=== PATIENT | female | born 1970 | race Caucasian/White ===

== ENCOUNTER 2018-02-28 21:20 | Emergency (ER) | payer OTHER ==
[~2018-02-28] VITALS: Ht 165.1 cm; Wt 77.1 kg
[2018-02-28] MEDS ORDERED: PROZAC10 MG PO (21:26)
[2018-02-28 21:41] LABS: ABSOLUTE EOSINOPHILS 0.5 thou/uL (0.0-0.7); ABSOLUTE LYMPHOCYTES 2.8 thou/uL (0.8-5.3); ABSOLUTE MONOCYTES 0.6 thou/uL (0.0-1.2); ABSOLUTE NEUTROPHILS 4.9 thou/uL (1.6-8.1); BASOPHILS 0.5 %; EOSINOPHILS 5.3 %; HEMOGLOBIN 12.2 gm/dL (12.0-15.0); LYMPHOCYTES 31.7 %; MCHC 34.9 g/dL (28.0-37.0); MCV 91.5 fL (80.0-100.0); MONOCYTES 6.5 %; MPV 7.5 fl. (7.2-11.1); NUCLEATED RBCS 0 /100WBC; PLATELET COUNT* 289 thou/uL (150-400); RBC 3.83 mil/uL (4.20-5.00); RDW-CV 12.7 % (10.5-14.5); WBC 8.8 thou/uL (4.0-11.0)
[2018-02-28 21:51] LABS: ANION GAP 9 mmol/L (7-16); BUN 16 mg/dL (7-18); CHLORIDE 103 mmol/L (98-107); CO2 26 mmol/L (21-32); CREATININE 0.7 mg/dL (0.6-1.3); GLUCOSE 98 mg/dL (70-99); POTASSIUM 3.9 mmol/L (3.5-5.1); PROTIME 10.2 Seconds (9.20-11.50); SODIUM 138 mmol/L (136-145)
[2018-02-28 22:01] LABS: ALBUMIN 3.7 g/dL (3.4-5.0); ALKALINE PHOSPHATASE 51 U/L (46-116); LIPASE 137 U/L (73-393); NT-PRO BRAIN NAT PEPTIDE 15 pg/mL (<300); SGOT 18 U/L (15-37); SGPT 21 U/L (30-65); TOTAL BILIRUBIN 0.2 mg/dL (<0.1-1.0); TOTAL PROTEIN 7.4 g/dL (6.4-8.2); TROPONIN-I LEVEL <0.06 ng/mL (<0.06)
[2018-02-28] MEDS ORDERED: XANAX 1 MG TABLE1 MG PO (22:59)
[2018-02-28 23:27] VITALS: BP 107/67
--- NOTE | 2018-03-02 15:49 | EKG ---
[place] [address] ELECTROCARDIOGRAM REPORT Name: JARROD BEY Room: 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
== END 2018-02-28 23:27 | disposition home or self-care (01) ==
LOC: M.ERS 21:20
PROVIDERS: Emergency Medicine
DX: R07.89 Other chest pain (principal); F32.9 Major depressive disorder, single episode, unspecified; E78.5 Hyperlipidemia, unspecified

== ENCOUNTER 2020-02-06 22:54 | Emergency (ER) | payer OTHER ==
[~2020-02-06] VITALS: Ht 165.1 cm; Wt 70.3 kg
--- NOTE | ~2020-02-06 | CON ---
[address] [address] CONSULTATION Name: МАРИЯ JARROD ESPINOZA Room: [facility]#: [id number] Admission: 02/06/20 Attend Phys: Discharge: 02/07/20 Date of : 68 Report #: [id number] THIS REPORT FOR: //name// cc: ANNA - No family physician/PCP [facility] - No family physician/PCP ~ THIS REPORT FOR: //name// CC: [facility] physician/PCP Feli Sparks DATE OF SERVICE: 02/06/2020 HISTORY OF PRESENT ILLNESS: This is a pleasant female with a past medical history significant for food bolus impactions and esophageal dilation, was presenting with food bolus impaction. The patient reports she had dinner at 8:30 p.m. Since then, has had something stuck in her chest. The patient is unable to swallow liquids. In the Emergency Department, the patient was given a combination of glucagon and Ativan and this failed to relieve her symptoms. PAST MEDICAL HISTORY: Nonsignificant. PAST SURGICAL HISTORY: ACL repair. SOCIAL HISTORY: No history of smoking, alcohol or recreational drug use. FAMILY HISTORY: No family history of colon cancer or [place]-related neoplasia. REVIEW OF SYSTEMS: Comprehensive 10-point review of systems is negative except what is mentioned in the HPI. PHYSICAL EXAMINATION: GENERAL: The patient is alert, awake, oriented x 3. HEENT: Pupils are equal, round, reactive to light and accommodation. Mucous membranes are moist. There is no congestion. LUNGS: Clear to auscultation bilaterally. CARDIOVASCULAR: Rate and rhythm regular, S1, S2 present. ABDOMEN: Soft. There is no distention, guarding or rigidity. EXTREMITIES: Warm and well perfused. There is no edema. ASSESSMENT AND PLAN: Pleasant 49-year-old female who is presenting with food [address] [address] CONSULTATION Name: JARROD BEY Room: [facility]#: [id number] Admission: 02/06/20 Attend Phys: Discharge: 02/07/20 Date of : 68 Report #: [id number] bolus impaction. We will proceed with EGD and make further recommendations based on results of EGD. By: 0123 Perez Sparks MD /saul
--- NOTE | ~2020-02-06 | PROC ---
[address] [address] PROCEDURE REPORT Name: JARROD BEY [id number] Admission: 02/06/20 Attend Phys: Discharge: 02/07/20 Date of : 68 Report #: [id number] THIS REPORT FOR: //name// cc: FAM - No family physician/PCP FAM - No family physician/PCP ~ THIS REPORT FOR: //name// For GI report, please see the Provation report in Perceptive 7 content. By: [id number] Records Staff [facility] /JARRETT
[~2020-02-06 22:54] MED LIST: PROZAC10 MG PO; XANAX 1 MG TABLE1 MG PO
[2020-02-06] MEDS ORDERED: ZYRTEC10 M5 PO (23:01)
[2020-02-07 00:30] VITALS: BP 120/73
--- NOTE | 2020-02-10 10:08 | PATH ---
[facility] [address] [place] [address] PATHOLOGY RPT PROCEDURE Name: JARROD WELCH Room: [facility] Trey#: [id number] Admission: 02/06/20 Date of : 68 Discharge: 02/07/20 Report #: [id number] Path Case #: [id number] [facility] Accession Number: [id number] . 01 Material submitted: . esophagus - ESOPHAGEAL BIOPSY RULE OUT EOSINOPHILIC ESOPHAGITIS . 01 Clinical history: . Hx of Borja's Dx/ food bolus, R/O eosinophilic esophagitis . 02 Diagnosis: Esophageal biopsy: - Typical of eosinophilic (allergic) esophagitis. See comment. . (VINNY:kameron; 02/09/2020) S 02/09/2020 1025 Local . 02 Comment: The biopsies reveal benign esophageal mucosa with an abundance of eosinophils averaging at least 20 per high power field and associated with prominent basilar cell hyperplasia. (VINNY:kameron; 02/09/2020) . 02 Electronically signed: . Heraclio Dupont MD, Pathologist NPI- [id number] . 01 Gross description: . The specimen is received in formalin, labeled "Jarrod Welch, esophageal biopsy" and consists of multiple fragments of freitas tissue measuring 0.7 x 0.3 x 0.2 cm in aggregate which are entirely submitted in A1. (JMF; 02/08/2020) JFQ/JFQ 02/08/2020 1319 Local . 02 Pathologist provided ICD-10: K22.8 . 02 CPT . 225461 Specimen Comment: A courtesy copy of this report has been sent to [phone] Specimen Comment: [phone] Specimen Comment: Report sent to Specimen Comment: A duplicate report has been generated due to demographic updates. Performed at: [address] [place] [address] PATHOLOGY RPT PROCEDURE Name: JARROD WELCH Room: [facility]#: [id number] Admission: 02/06/20 Date of : [birth year] Discharge: 02/07/20 Report #: [id number] Path Case #: [id number] [address] [facility] [address], [place], [place] [id number] MD Fly Skelton MD Phone: [phone] Performed at: [address] [facility] [address], [place], [place] [id number] MD Heraclio Dupont MD Phone: [phone]
== END 2020-02-07 00:30 | disposition still patient (30) ==
LOC: M.GI 22:54 → M.ERS 22:54 → M.GI 02-07 00:30
DX: T18.128A Food in esophagus causing other injury, initial encounter (principal); E78.5 Hyperlipidemia, unspecified; F32.9 Major depressive disorder, single episode, unspecified; X58.XXXA Exposure to other specified factors, initial encounter; Y93.89 Activity, other specified; Y92.89 Other specified places as the place of occurrence of the external cause; Y99.8 Other external cause status